=== PATIENT | female | born 2000 | race Two or more races ===

== ENCOUNTER 2019-05-24 02:05 | Emergency (ER) | payer OTHER ==
[2019-05-24 03:08] VITALS: BMI 18.8
--- NOTE | 2019-05-24 03:36 | PDOC ---
Attending Attestation - Resident Resident Name: Giovanni Hopper - ED Attending Attestation I have performed the following: I have examined & evaluated the patient, The case was reviewed & discussed with the resident, I agree w/resident's findings & plan - HPI HPI: 05/24/19 03:34 Pt comes with vag bleed in Pt thinks that she is 6 weeks . - Physicial Exam PE: 05/24/19 03:35 Agree with resident exam - Medical Decision Making 05/24/19 03:35 Pt awaiting beta quant Pt needs T&S then we will dispo her 05/24/19 05:46 HCG is 44K; pt will get a sono in the AM to see the fetus and r/o ectopic or other cause of bleed. Pt has RH-NEGATIVE blood and she will require a dose of rhogam 05/24/19 05:47 Pt has hb/hct stable 05/24/19 06:40 Pt will have a sono this AM
--- NOTE | 2019-05-24 03:47 | PDOC ---
History of Present Illness - General Chief Complaint: Vaginal Bleeding Stated Complaint: VAGINAL BLEED/6WKS History Source: Patient Exam Limitations: No Limitations - History of Present Illness Initial Comments: HPI: 18 y/o female presenting to [facility] ER complaining of vaginal bleeding vs spotting for the past two days. Estimated 6 weeks . Notices blood while wiping. No significant bleeding into her underwear. Does not believe she passed clotted material. No associated abdominal pain, dysuria, vaginal discharge, chest pain, SOB, or syncope. Receiving care at [facility]. TVUS performed last week. Reportedly normal IUP. Reports feeling safe at home and in her relationship. Denies concern for personal safety. OBGYN Hx: - LMP 02 Apr 2019 - G 1, T 0, P 0, A 0, L 0 - Last PAP Smear Dec 2018 - reportedly normal - H/o STDs Chlamydia at age 14, received treatment Medical Hx: - Denies past medical history Surgical Hx: - Denies past surgical history Review of Systems: In addition to that documented in the HPI above, the additional ROS was obtained: Constitutional- Denies fevers or chills Head- Denies vision changes ENMT- Denies sore throat CV- Denies chest pain Resp- Denies SOB GI- Reports nonbloody, nonbilious vomiting yesterday. No abd pain or diarrhea. - Denies painful urination, hematuria, or increased frequency MSK- Denies recent trauma Skin- Denies new rashes Neuro- Denies new numbness or tingling or weakness Endocrine- Denies polyuria Heme- Denies bleeding or bruising Physical Examination: Vital signs and nursing notes reviewed. Constitutional- Well-developed, well-nourished adult female in no acute distress or obvious discomfort. Found sitting upright on SIMULATION EDUCATOR table. Answered all questions appropriately and completely. Head- Normocephalic. No obvious external signs of trauma. Eyes- Sclerae white. Cardiovascular / Chest- Regular rate and regular rhythm. No murmur, rubs, clicks, or gallops. Peripheral pulses- radial pulses full. No pretibial edema. Respiratory- Breathing unlabored. Equal chest rise and fall. Clear to auscultation bilaterally. No stridor, no wheezing, no rhonchi. Gastrointestinal- abdomen is soft, non-tender, non-distended. No hepatosp lenomegaly. No pulsatile masses. No overlying skin lesions or obvious signs of trauma. Female Pelvic: External genitalia unremarkable. Speculum exam with normal appearing whitish vaginal discharge. Vaginal wall mucosa is unremarkable. Cervix closed in appearance without any protruding material; mild erythema at 6 o'clock position. Bimanual exam without cervical motion tenderness, adnexal tenderness or any masses appreciated. FABIENNE Orta chaperoned exam. Neuro- Alert and oriented x4. Moving all four extremities spontaneously. No facial asymmetry. No slurred speech. Skin- Warm, dry, and intact. - No R or L CVA tenderness. Psych- Affect- appropriate. Mood- normal. Speech was non-labored, non- pressured. MDM: 18 y/o female presenting with vaginal spotting in setting of early first trimester . Afebrile. Vitals unremarkable for hypotension or tachycardia. Physical exam as described above. Low suspicion for clinically significant anemia. Possible completed ab vs threatened ab vs incomplete ab vs hemorrhagic cystitis vs physiologic bleeding of . Reviewed laboratory data. No clinically significant derangement noted. Pts blood type is Rh negative. Ordered RhoGam injection. Discussed risks and benefits associated with this blood product administration. Provided information packets on Rh negative pregnancies and RhoGam administration. Pt expressed verbal and written understanding and consent. Ordered retype to confirm blood type. No historical results available for review. Will obtain TVUS to evaluation for ectopic. 24 May 2019 07:05 AM Pt signed out to resident Dr. Coleman after she was verbally appraised of the pts HPI, current ED course, and plan of management. Will f/u pending TVUS and RhoGam administration. Anticipate discharge home with OB follow up. Giovanni Hopper M.D., PGY2 Emergency Medicine Resident Past History - Past Medical History Allergies/Adverse Reactions: Allergies Allergy/AdvReac Type Severity Reaction Status Date / Time No Known Allergies Allergy Verified 05/24/19 03:09 - Psycho Social/Smoking Cessation Hx Smoking History: Never smoked *Physical Exam - Vital Signs Last Vital Signs Temp Pulse Resp BP Pulse Ox 97.9 F 83 18 101/38 L 99 05/24/19 02:05 05/24/19 02:05 05/24/19 02:05 05/24/19 02:05 05/24/19 02:05 ED Treatment Course - LABORATORY CBC & Chemistry Diagram: 05/24/19 03:30 05/24/19 03:38 Discharge - Discharge Information Problems reviewed: Yes Clinical Impression/Diagnosis: Vaginal bleeding before 22 weeks gestation Condition: Stable - Follow up/Referral Referrals: Tanmay Wong MD [Primary Care Provider] - - Patient Discharge Instructions - Post Discharge Activity
[2019-05-24 04:31] LABS: BASO % 0.7 % (0-2.0); EOS % 2.8 % (0-4.5); HEMATOCRIT 34.6 % (32.4-45.2); HEMOGLOBIN 11.5 GM/dL (10.7-15.3); LYMPH % 32.8 % (8-40); MCHC 33.3 g/dl (32.0-36.0); MEAN CELL VOLUME 84.2 fl (80-96); MEAN PLT VOLUME 9.1 fl (7.5-11.1); MONO % 18.4 % (3.8-10.2); NEUT % 45.3 % (42.8-82.8); PLATELET COUNT 312 K/MM3 (134-434); RBC 4.11 M/mm3 (3.60-5.2); RDW 14.3 % (11.6-15.6); WHITE BLOOD COUNT 4.8 K/mm3 (4.0-10.0)
[2019-05-24 04:33] LABS: INR 1.06 (0.83-1.09); PROTHROMBIN TIME (PATIENT) 12.5 SEC (9.7-13.0)
[2019-05-24 04:35] LABS: ACTIVATED PTT 30.7 SECONDS (25.2-36.5)
[2019-05-24 04:47] LABS: EPI CELLS 1.3 /HPF (0-5/HPF); HYALINE CASTS 0 /lpf (0-8); URINE APPEARANCE CLEAR; URINE BACTERIA 4.1 /hpf (NEGATIVE); URINE BILIRUBIN NEGATIVE (NEGATIVE); URINE COLOR YELLOW; URINE GLUCOSE (UA) NEGATIVE (NEGATIVE); URINE KETONE NEGATIVE (NEGATIVE); URINE LEUK ESTERASE TRACE (NEGATIVE); URINE NITRITE NEGATIVE (NEGATIVE); URINE PROTEIN NEGATIVE (NEGATIVE); URINE RBC 0 /hpf (0-4); URINE UROBILINOGEN 0.2 mg/dL (0.2-1.0); URINE WBC 2 /hpf (0-5)
[2019-05-24 04:58] LABS: ALBUMIN 3.8 g/dl (3.4-5.0); BILIRUBIN,TOTAL 0.3 mg/dL (0.2-1); BLOOD UREA NITROGEN 6.5 mg/dL (7-18); CALCIUM 8.8 mg/dL (8.5-10.1); CREATININE 0.5 mg/dL (0.55-1.3); POTASSIUM 4.2 mmol/L (3.5-5.1)
[2019-05-24] MEDS ORDERED: RHO(D) IMMUNE GLOBULIN 1,500 UNIT DISP.SYRIN IM ONE (05:16)
--- NOTE | 2019-05-24 09:47 | PDOC ---
*Physical Exam - Vital Signs Last Vital Signs Temp Pulse Resp BP Pulse Ox 97.9 F 83 18 101/38 L 99 05/24/19 02:05 05/24/19 02:05 05/24/19 02:05 05/24/19 02:05 05/24/19 08:09 ED Treatment Course - LABORATORY CBC & Chemistry Diagram: 05/24/19 03:30 05/24/19 03:38 - ADDITIONAL ORDERS Additional order review: Laboratory Results 05/24/19 05/24/19 05/24/19 07:00 04:05 03:38 PT with INR INR PTT (Actin FS) Sodium Potassium Chloride Carbon Dioxide Anion Gap BUN Creatinine Est GFR (CKD-EPI)AfAm Est GFR (CKD-EPI)NonAf Random Glucose Calcium Total Bilirubin AST ALT Alkaline Phosphatase Total Protein Albumin Beta HCG, Quant Urine Color Yellow Urine Appearance Clear Urine pH 7.0 Ur Specific [place] 1.004 L Urine Protein Negative Urine Glucose (UA) Negative Urine Ketones Negative Urine Blood Negative Urine Nitrite Negative Urine Bilirubin Negative Urine Urobilinogen 0.2 Ur Leukocyte Esterase Trace Urine WBC (Auto) 2 Urine RBC (Auto) 0 Urine Casts (Auto) 0 U Epithel Cells (Auto) 1.3 Urine Bacteria (Auto) 4.1 Blood Type A NEGATIVE A NEGATIVE Antibody Screen Negative Negative Unit Expiration Date 05/24/19 05/24/19 03:38 03:38 PT with INR 12.50 INR 1.06 PTT (Actin FS) 30.7 Sodium 136 Potassium 4.2 Chloride 101 Carbon Dioxide 27 Anion Gap 8 BUN 6.5 L Creatinine 0.5 L Est GFR (CKD-EPI)AfAm 161.48 Est GFR (CKD-EPI)NonAf 139.32 Random Glucose 91 Calcium 8.8 Total Bilirubin 0.3 AST 19 ALT 23 Alkaline Phosphatase 60 Total Protein 7.0 Albumin 3.8 Beta HCG, Quant 71571.4 Urine Color Urine Appearance Urine pH Ur Specific [place] Urine Protein Urine Glucose (UA) Urine Ketones Urine Blood Urine Nitrite Urine Bilirubin Urine Urobilinogen Ur Leukocyte Esterase Urine WBC (Auto) Urine RBC (Auto) Urine Casts (Auto) U Epithel Cells (Auto) Urine Bacteria (Auto) Blood Type Antibody Screen Unit Expiration Date 05/24/19 03:30 RBC 4.11 MCV 84.2 MCHC 33.3 RDW 14.3 MPV 9.1 Neutrophils % 45.3 Lymphocytes % 32.8 Monocytes % 18.4 H Eosinophils % 2.8 Basophils % 0.7 Medical Decision Making - Medical Decision Making Patient signed out by Dr. Hopper 18yo F with vaginal bleeding x 2 days US as reported by radiology: "EXAM#: TYPE/EXAM: RESULT: [id number] US/TRANSVAGINAL US PREG HISTORY PROVIDED: evaluation. Real time examination of the pelvis utilizing both the transabdominal and transvaginal probes demonstrates the following: There is a single, live intrauterine with crown-rump measurements corresponding to a g estational age of 6 weeks 4 days. A heart rate of 121 BPM was calculated. The ovaries are normal in size and texture with arterial and venous flow documented to both ovaries. There is a small cyst within the right ovary measuring 1.3 cm. There is no evidence of adnexal masses or free pelvic fluid collections. IMPRESSION: Single, live intrauterine of 6 weeks 4 days gestational age. 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 you should follow up with your electronic scale tester nothing per vagina while bleeding continues. return for any problems or concerns. your blood type is RH negative you were given Rho Gham today in emergency department. - Post Discharge Activity
[2019-05-24 10:09] VITALS: BP 119/56; PULSE 77; TEMP 98.6
== END 2019-05-24 11:12 | disposition home or self-care (01) ==
LOC: JER 02:05
PROC: 3E0234Z Introduction of Serum, Toxoid and Vaccine into Muscle, Percutaneous Approach (ICD-10-PCS; principal; 2019-05-24)
DX: O26.891 Other specified pregnancy related conditions, first trimester (principal); O20.8 Other hemorrhage in early pregnancy; O36.0910 Maternal care for other rhesus isoimmunization, first trimester, not applicable or unspecified; Z3A.01 Less than 8 weeks gestation of pregnancy; Z86.19 Personal history of other infectious and parasitic diseases
CPT/HCPCS: 36415; 76817-TC; 80053; 81003; 84702; 85025; 85610; 85730; 86850; 86900; 86901; 86999; 87086; 99284-25; J1561